=== PATIENT | female | born 1995 | race Caucasian/White ===

== ENCOUNTER 2022-09-21 18:23 | Emergency (ER) | payer OTHER ==
[2022-09-21 18:41] VITALS: BP 112/76; PULSE 86; RESP 18; TEMP 98.2; BMI 29.2
[2022-09-21] MEDS ORDERED: SODIUM CHLORIDE 0.9% 500 ML INFUS.BAG IV ONE (19:08)
[2022-09-21] MEDS ORDERED: ONDANSETRON 4 MG/2 ML VIAL IVPUSH ONE (19:08)
[2022-09-21] MEDS ORDERED: ONDANSETRON 4 MG/2 ML VIAL ONE (19:10)
[2022-09-21 20:04] LABS: BASO % 0.4 % (0-2.0); EOS % 0.9 % (0-4.5); HEMATOCRIT 37.8 % (32.4-45.2); HEMOGLOBIN 12.7 GM/dL (10.7-15.3); LYMPH % 17.6 % (8-40); MCH 26.6 pg (25.7-33.7); MCHC 33.7 g/dl (32.0-36.0); MEAN CELL VOLUME 78.9 fl (80-96); MEAN PLT VOLUME 8.4 fl (7.5-11.1); MONO % 7.9 % (3.8-10.2); NEUT % 73.2 % (42.8-82.8); PLATELET COUNT 257 10^3/uL (134-434); RBC 4.79 M/mm3 (3.60-5.2); RDW 14.5 % (11.6-15.6); WHITE BLOOD COUNT 7.2 K/mm3 (4.0-10.0)
[2022-09-21 20:31] LABS: BLOOD UREA NITROGEN 5.3 mg/dL (7-18); CALCIUM 9.1 mg/dL (8.5-10.1)
[2022-09-21 20:32] LABS: ALBUMIN 3.3 g/dl (3.4-5.0)
[2022-09-21 20:35] LABS: CREATININE 0.4 mg/dL (0.55-1.3)
[2022-09-21 20:36] LABS: BILIRUBIN,TOTAL 0.8 mg/dL (0.2-1); TOT PROT 7.2 g/dl (6.4-8.2)
== END 2022-09-21 20:51 | disposition home or self-care (01) ==
LOC: JER 18:23
PROC: 3E033GC Introduction of Other Therapeutic Substance into Peripheral Vein, Percutaneous Approach (ICD-10-PCS; principal; 2022-09-21)
DX: O21.9 Vomiting of pregnancy, unspecified (principal); Z3A.14 14 weeks gestation of pregnancy
CPT/HCPCS: 36415; 80053; 85025; 99284-25

== ENCOUNTER 2022-09-28 12:30 | Emergency (ER) | payer OTHER ==
[2022-09-28 13:48] VITALS: BP 98/67; PULSE 82; RESP 18; TEMP 98.4; BMI 27.9
[2022-09-28] MEDS ORDERED: SODIUM CHLORIDE 0.9% 500 ML INFUS.BAG IV ONE (14:44)
[2022-09-28] MEDS ORDERED: ONDANSETRON 4 MG/2 ML VIAL IVPUSH ONE (14:44)
[2022-09-28] MEDS ORDERED: FAMOTIDINE 20 MG/50 ML IVPB 20 MG/50 ML MG IVPB ONE ×2 (14:47→14:48)
[2022-09-28 16:38] LABS: BASO % 0.4 % (0-2.0); EOS % 0.7 % (0-4.5); HEMATOCRIT 42.1 % (32.4-45.2); HEMOGLOBIN 13.7 GM/dL (10.7-15.3); LYMPH % 18.6 % (8-40); MCH 25.9 pg (25.7-33.7); MCHC 32.5 g/dl (32.0-36.0); MEAN CELL VOLUME 79.9 fl (80-96); MONO % 8.1 % (3.8-10.2); NEUT % 72.2 % (42.8-82.8); PLATELET COUNT 281 10^3/uL (134-434); RBC 5.27 M/mm3 (3.60-5.2); RDW 14.4 % (11.6-15.6); WHITE BLOOD COUNT 5.8 K/mm3 (4.0-10.0)
[2022-09-28 16:59] LABS: ALBUMIN 3.8 g/dl (3.4-5.0)
[2022-09-28 17:00] LABS: BLOOD UREA NITROGEN 6.1 mg/dL (7-18); CALCIUM 9.5 mg/dL (8.5-10.1)
[2022-09-28 17:04] LABS: CREATININE 0.4 mg/dL (0.55-1.3)
[2022-09-28 17:05] LABS: BILIRUBIN,TOTAL 0.6 mg/dL (0.2-1); TOT PROT 8.1 g/dl (6.4-8.2)
[2022-09-28 20:24] LABS: EPI CELLS >36 /uL (0-25.1); HYALINE CASTS 5 /uL (0-3.1); URINE APPEARANCE CLOUDY; URINE BACTERIA 4387 /uL (0-1359); URINE BILIRUBIN NEGATIVE (NEGATIVE); URINE COLOR DK YELLOW; URINE GLUCOSE (UA) NEGATIVE (NEGATIVE); URINE KETONE 4+ (NEGATIVE); URINE LEUK ESTERASE TRACE (NEGATIVE); URINE NITRITE NEGATIVE (NEGATIVE); URINE PROTEIN NEGATIVE (NEGATIVE); URINE WBC 52 /uL (0-25.8)
[2022-09-28] MEDS ORDERED: DEXTROSE 5%-NORMAL SALINE 1,000 ML IV ONE (20:30)
[2022-09-28 21:05] LABS: URINE RBC 98.2 /uL (0-23.9)
[2022-09-28] MEDS ORDERED: CEPHALEXIN MONOHYDRATE 500 MG CAPSULE (UD) PO ONE (21:29)
[2022-09-28] MEDS ORDERED: CEPHALEXIN MONOHYDRATE 500 MG CAPSULE (UD) ONE (21:31)
== END 2022-09-28 22:39 | disposition home or self-care (01) ==
LOC: JERFT 12:30 → JER 12:30 → JERFT 22:39
PROC: 3E033GC Introduction of Other Therapeutic Substance into Peripheral Vein, Percutaneous Approach (ICD-10-PCS; principal; 2022-09-28)
PROC: 3E033GC Introduction of Other Therapeutic Substance into Peripheral Vein, Percutaneous Approach (ICD-10-PCS; 2022-09-28)
PROC: 3E033GC Introduction of Other Therapeutic Substance into Peripheral Vein, Percutaneous Approach (ICD-10-PCS; 2022-09-28)
DX: O23.40 Unspecified infection of urinary tract in pregnancy, unspecified trimester (principal); O21.0 Mild hyperemesis gravidarum; Z3A.00 Weeks of gestation of pregnancy not specified
CPT/HCPCS: 36415; 80053; 81003; 85025; 87086; 99284-25

== ENCOUNTER 2024-07-21 05:49 | Emergency (ER) | payer BC, OTHER ==
[2024-07-21 05:55] VITALS: BP 100/61; PULSE 74; RESP 19; TEMP 98.8; BMI 33.1
[2024-07-21 07:25] LABS: EPI CELLS >36 /uL (0-25.1); HYALINE CASTS 1 /uL (0-3.1); URINE APPEARANCE CLOUDY; URINE BACTERIA 1589 /uL (0-1359); URINE BILIRUBIN NEGATIVE (NEGATIVE); URINE COLOR YELLOW; URINE GLUCOSE (UA) NEGATIVE (NEGATIVE); URINE KETONE NEGATIVE (NEGATIVE); URINE LEUK ESTERASE 2+ (NEGATIVE); URINE NITRITE NEGATIVE (NEGATIVE); URINE PROTEIN 1+ (NEGATIVE); URINE RBC 1795 /uL (0-23.9); URINE UROBILINOGEN 0.2 mg/dL (0.2-1.0); URINE WBC 3356 /uL (0-25.8)
[2024-07-21] MEDS ORDERED: CEPHALEXIN MONOHYDRATE 500 MG CAPSULE (UD) ONE (07:34)
[2024-07-21] MEDS: CEPHALEXIN MONOHYDRATE 500 MG CAPSULE (UD) PO ONE (07:43)
== END 2024-07-21 07:54 | disposition home or self-care (01) ==
LOC: JER 05:49
DX: O23.12 Infections of bladder in pregnancy, second trimester (principal); O99.891 Other specified diseases and conditions complicating pregnancy; R30.0 Dysuria; R39.15 Urgency of urination; R35.0 Frequency of micturition; Z3A.21 21 weeks gestation of pregnancy
CPT/HCPCS: 81003; 87086; 87186; 99283-25

== ENCOUNTER 2024-11-26 22:52 | Inpatient (IN) | payer BC ==
[2024-11-26] MEDS: ELECTROLYTE-148 SOLN 1,000 ML IV SCH (23:30)
[2024-11-26 23:40] VITALS: BMI 38.7
[2024-11-26 23:55] LABS: BASO % 0.2 % (0-2.0); EOS % 0.6 % (0-4.5); HEMOGLOBIN 10.4 GM/dL (10.7-15.3); MCH 20.8 pg (25.7-33.7); MCHC 31.4 g/dl (32.0-36.0); MEAN CELL VOLUME 66.2 fl (80-96); MEAN PLT VOLUME 8.3 fl (7.5-11.1); MONO % 9.3 % (3.8-10.2); NEUT % 72.9 % (42.8-82.8); PLATELET COUNT 284 10^3/uL (134-434); RBC 4.98 M/mm3 (3.60-5.2)
[2024-11-27 00:19] LABS: POTASSIUM 4.3 mmol/L (3.5-5.1)
[2024-11-27 00:21] LABS: CALCIUM 9.3 mg/dL (8.5-10.1)
[2024-11-27 00:24] LABS: CREATININE 0.5 mg/dL (0.55-1.3)
[2024-11-27] MEDS ORDERED: FENTANYL/BUPIVACAINE/NS/PF - PCEA - 50 ML DISP.SYRIN EP ONE ×2 (00:38→04:48)
[2024-11-27] MEDS: FENTANYL/BUPIVACAINE/NS/PF - PCEA - 50 ML DISP.SYRIN EP SCH (01:00)
[2024-11-27] MEDS ORDERED: NALOXONE HCL 0.4 MG/ML VIAL IVPUSH PRN (01:02)
[2024-11-27 01:14] LABS: HIV INTERPRETATION NEGATIVE (NEGATIVE)
[2024-11-27 01:21] LABS: ANISOCYTOSIS 3+; MACROCYTOSIS 0; OVALOCYTE 1+; ROULEAU 1+
[2024-11-27] MEDS ORDERED: AMPICILLIN SODIUM 2 GM VIAL ONE (01:27)
[2024-11-27 01:28] LABS: INR 0.95 (0.83-1.09); PROTHROMBIN TIME (PATIENT) 10.5 SEC (9.7-13.0)
[2024-11-27] MEDS: AMPICILLIN - 2 GM in SODIUM CHLORIDE 100 ML IVPB ONE (01:30)
[2024-11-27 01:31] LABS: ACTIVATED PTT 25.5 SECONDS (25.2-36.5)
[2024-11-27] MEDS: ELECTROLYTE-148 SOLN 1,000 ML IV SCH (04:30)
[2024-11-27] MEDS ORDERED: AMPICILLIN SODIUM 1 GM VIAL ONE (05:10)
[2024-11-27] MEDS ORDERED: SODIUM CHLORIDE 100 ML IVPB ONE (05:10)
[2024-11-27] MEDS: AMPICILLIN - 1 GM in SODIUM CHLORIDE 100 ML IVPB SCH (05:14)
[2024-11-27] MEDS ORDERED: OXYTOCIN 20 UNITS in 0.9% NS 20 UNIT/1,000 ML INFUS.BAG IV ONE (07:00)
[2024-11-27] MEDS ORDERED: OXYTOCIN 30 UNITS in 0.9% NS 30 UNIT/500 ML INFUS.BAG IVPB ONE (07:43)
[2024-11-27] MEDS ORDERED: LIDOCAINE HCL 1% PRESERVATIVE FREE - 30ML VIAL ONE (07:52)
[2024-11-27] MEDS: OXYTOCIN 20 UNITS in 0.9% NS 20 UNIT/1,000 ML INFUS.BAG IV SCH (08:00)
[2024-11-27] MEDS ORDERED: WITCH HAZEL 50% (TUCKS) 40 PAD/JAR PAD TP PRN (08:08)
[2024-11-27] MEDS ORDERED: METHYLERGONOVINE MALEATE 0.2 MG/1 ML AMP IM PRN (08:08)
[2024-11-27] MEDS ORDERED: ACETAMINOPHEN 325 MG TABLET (FP) PO PRN (08:08)
[2024-11-27] MEDS ORDERED: BISACODYL 10 MG SUPP.RECT RC PRN (08:08)
[2024-11-27] MEDS ORDERED: BENZOCAINE 28 GM HEMORRHOIDAL OINTMENT TP PRN (08:08)
[2024-11-27] MEDS: IBUPROFEN 600 MG TABLET (FP) PO PRN (08:30)
[2024-11-27] MEDS ORDERED: IBUPROFEN 600 MG TABLET (FP) PO ONE (08:33)
[2024-11-27] MEDS: PRENATAL VITAMINS W/ FOLIC ACID TABLET (FP) PO SCH (10:00)
[2024-11-27] MEDS: FERROUS SO4 325 MG TABLET (FP) PO SCH (10:00)
[2024-11-27] MEDS: BENZOCAINE 20% 57 GM BOTTLE TP PRN (14:36)
[2024-11-28] MEDS: oxyCODONE HCL 5 MG TABLET PO PRN (05:05)
[2024-11-28 07:19] LABS: BASO % 0.4 % (0-2.0); EOS % 0.7 % (0-4.5); HEMATOCRIT 28.6 % (32.4-45.2); HEMOGLOBIN 8.9 GM/dL (10.7-15.3); LYMPH % 18.1 % (8-40); MCH 20.9 pg (25.7-33.7); MCHC 31.2 g/dl (32.0-36.0); MEAN PLT VOLUME 8.3 fl (7.5-11.1); MONO % 7.4 % (3.8-10.2); NEUT % 73.4 % (42.8-82.8); PLATELET COUNT 268 10^3/uL (134-434); RBC 4.27 M/mm3 (3.60-5.2); RDW 18.7 % (11.6-15.6); WHITE BLOOD COUNT 9.1 K/mm3 (4.0-10.0)
[2024-11-28] MEDS ORDERED: FLU VACCINE (FLULAVAL) PF 45 MCG/0.5 ML SYRINGE 2024-2025 IM ONE (10:00)
[2024-11-28] MEDS: FLU VACCINE (FLULAVAL) PF 45 MCG/0.5 ML SYRINGE 2024-2025 IM ONE (11:59)
[2024-11-28] MEDS ORDERED: SENNOSIDES/DOCUSATE COMBO (SENNA PLUS) TABLET (UD) PO PRN (22:00)
[2024-11-28 22:14] VITALS: RESP 18
[2024-11-29 10:09] VITALS: BP 110/73; PULSE 91; TEMP 98.4
== END 2024-11-29 12:00 | disposition home or self-care (01) | DRG 807 ==
LOC: JDEL 22:52 → JLDR 23:17 → J3W 11-27 10:25
PROVIDERS: ADMIT Obstetrics & Gynecology; ATTEND Obstetrics & Gynecology
PROC: 10E0XZZ Delivery of Products of Conception, External Approach (ICD-10-PCS; principal; 2024-11-27)
PROC: 0HQ9XZZ Repair Perineum Skin, External Approach (ICD-10-PCS; 2024-11-27)
DX: O70.0 First degree perineal laceration during delivery (principal); Z37.0 Single live birth; Z3A.39 39 weeks gestation of pregnancy
CPT/HCPCS: 36415; 59409; 80048; 85025; 85610; 85730; 86780; 86850; 86900; 86901; 87389; 90656; G0008